=== PATIENT | male | born 1955 | race Caucasian/White ===

== ENCOUNTER 2019-05-26 21:37 | Inpatient (IN) ==
[2019-05-26 23:34] LABS: ABG Base Excess -2.1 MMOL/L (-2.5-2.5); ABG HCO3 22.7 MMOL/L (20-26); ABG Oxygen Saturation 99.5 % (95-100); ABG PCO2 43.6 MM HG (35-48); ABG PH 7.346 (7.35-7.45); ABG TCO2 20.2 MMOL/L (23-27); Allen Test Positive; Pt O2 Delivery Device Ventilator
[2019-05-26] MEDS ORDERED: PROPOFOL 1,000 MG/100 ML BOTTLE IV ONE (23:36)
[2019-05-26] MEDS: PROPOFOL 1,000 MG/100 ML BOTTLE IV SCH (23:44)
[2019-05-27 00:51] LABS: Albumin 3.8 G/DL (3.4-5.0); Bilirubin,Total 0.6 MG/DL (0.2-1.0); Calcium 8.5 MG/DL (8.5-10.1); Osmolality,Calculated 274.5 MOS/KG (273-304); Total Protein 7.3 G/DL (6.4-8.3)
[2019-05-27] MEDS ORDERED: ONDANSETRON 4 MG/2 ML VIAL IV PRN (00:57)
[2019-05-27] MEDS ORDERED: ALBUTEROL 2.5 MG/3 ML NEB RESP TX PRN (00:57)
[2019-05-27] MEDS ORDERED: ACETAMINOPHEN 325 MG TABLET PO PRN (00:57)
[2019-05-27 01:09] LABS: Basophils % 0.5 % (0.0-0.8); Hematocrit 43.2 VOL% (42.0-52.0); Immature Granulocytes % 0.3 %; Immature Granulocytes Absolute 0.01 #; Lymphocytes # 1.5 10*3/uL (1.4-4.0); Lymphocytes % 36.6 % (21.2-54.2); Mean Corpuscular HGB Conc 34.7 GM/DL (32-36); Mean Corpuscular Volume 92.5 FL (87-102); Mean Platelet Volume 9.2 FL (9.6-12.0); Monocytes % 5.5 % (1.7-12.7); Neutrophils % 57.1 % (38.7-73.9); Platelet Count 94 T/CUMM (130-400); Red Blood Count 4.67 MC/CUMM (3.8-5.5); Red Cell Distribution Width 12.1 % (9.3-17.3)
[2019-05-27] MEDS: SODIUM CHLORIDE 0.9% 1,000 ML IV SCH ×2 (01:43→09:43)
[2019-05-27 02:17] LABS: PT Patient Result 11.3 SECS
[2019-05-27 07:29] LABS: Apearance,Urine CLEAR (Clear); Bilirubin,Urine Negative (Negative); Blood, Urine Moderate mg/dL (Negative); Glucose,Urine (UA) Negative (Negative); Ketones,Urine Negative (Negative); Mucus,Urine Occasional /LPF (Occasional); Nitrite,Urine Negative (Negative); Protein,Urine Negative; RBC,Urine 1 /HPF (0-4); Urine Color Yellow (Yellow); Urine Specific Gravity 1.004 (1.001-1.035); Urine Urobilinogen < 2.0 EU/DL (0.2-1.0); WBC,Urine 1 /HPF (0-6)
[2019-05-27 07:40] LABS: Allen Test Positive; Pt O2 Delivery Device Ventilator
[2019-05-27 07:44] LABS: ABG Base Excess -1.1 MMOL/L (-2.5-2.5); ABG HCO3 23.5 MMOL/L (20-26); ABG Oxygen Saturation 99.6 % (95-100); ABG PCO2 35.9 MM HG (35-48); ABG PH 7.412 (7.35-7.45); ABG TCO2 19.3 MMOL/L (23-27)
[2019-05-27] MEDS ORDERED: LORazepam 2 MG/1 ML VIAL IV PRN (08:53)
[2019-05-27] MEDS: PROPOFOL 1,000 MG/100 ML BOTTLE IV SCH (09:23)
[2019-05-27] MEDS: PANTOPRAZOLE 40 MG VIAL IV SCH (09:25)
[2019-05-27] MEDS: THIAMINE 200 MG/2 ML VIAL IV SCH (11:48)
[2019-05-27] MEDS: NICOTINE 21 MG/24 HR PATCH TRANSDERM SCH (12:45)
[2019-05-27] MEDS: FOLIC ACID INJ 1 MG in SYRINGE 1 EACH IV SCH (12:46)
[2019-05-27] MEDS: ALBUTEROL/IPRATROPIUM 3 ML NEB RESP TX SCH ×2 (13:36→19:57)
[2019-05-27] MEDS: SULFAMETHOX/TRIMETHOPRIM 800-160 MG TABLET PO SCH ×2 (20:32→20:35)
[2019-05-27] MEDS: CLOPIDOGREL 75 MG TABLET PO SCH (20:32)
[2019-05-27] MEDS: ROSUVASTATIN 20 MG TABLET PO SCH (20:32)
[2019-05-27] MEDS: GABAPENTIN 600 MG TABLET PO SCH ×2 (20:32→21:07)
[2019-05-28] MEDS: ALBUTEROL/IPRATROPIUM 3 ML NEB RESP TX SCH ×2 (01:10→08:26)
[2019-05-28 05:28] LABS: Basophils % 0.4 % (0.0-0.8); Eosinophils % 0.2 % (0.00-10.9); Hematocrit 38.3 VOL% (42.0-52.0); Hemoglobin 13.2 GM/DL (14.0-18.0); Immature Granulocytes % 0.2 %; Immature Granulocytes Absolute 0.01 #; Lymphocytes # 1.6 10*3/uL (1.4-4.0); Lymphocytes % 33.1 % (21.2-54.2); Mean Corpuscular HGB Conc 34.5 GM/DL (32-36); Mean Corpuscular Volume 94.8 FL (87-102); Mean Platelet Volume 10.2 FL (9.6-12.0); Monocytes % 7.6 % (1.7-12.7); Neutrophils % 58.5 % (38.7-73.9); Platelet Count 72 T/CUMM (130-400); Red Blood Count 4.04 MC/CUMM (3.8-5.5); Red Cell Distribution Width 12.1 % (9.3-17.3); White Blood Count 4.9 T/CUMM (4-12)
[2019-05-28 05:58] LABS: Calcium 8.5 MG/DL (8.5-10.1); Osmolality,Calculated 282.1 MOS/KG (273-304)
[2019-05-28 08:20] VITALS: BP 121/67
[2019-05-28] MEDS ORDERED: POTASSIUM CHLORIDE 20 MEQ TABLET PO ONE (09:46)
[2019-05-28] MEDS: CLOPIDOGREL 75 MG TABLET PO SCH (10:16)
[2019-05-28] MEDS: GABAPENTIN 600 MG TABLET PO SCH (10:16)
[2019-05-28] MEDS: NICOTINE 21 MG/24 HR PATCH TRANSDERM SCH (10:17)
[2019-05-28] MEDS: THIAMINE 200 MG/2 ML VIAL IV SCH (10:17)
[2019-05-28] MEDS: ROSUVASTATIN 20 MG TABLET PO SCH (10:17)
[2019-05-28] MEDS: SULFAMETHOX/TRIMETHOPRIM 800-160 MG TABLET PO SCH (10:28)
[2019-05-28] MEDS: PANTOPRAZOLE 40 MG VIAL IV SCH (10:28)
[2019-05-28 10:34] LABS: Troponin I < 0.015 NG/ML (0.00-0.045)
[2019-05-28] MEDS: FOLIC ACID INJ 1 MG in SYRINGE 1 EACH IV SCH (10:36)
== END 2019-05-28 12:11 | disposition home or self-care (01) | DRG 208 ==
LOC: N.ICU 22:25 → SUATTDRO 23:07 → N.2E 05-27 18:26
PROVIDERS: ADMIT Internal Medicine; ATTEND Family Medicine

== ENCOUNTER 2020-03-01 12:23 | Observation (INO) ==
[2020-03-01] MEDS ORDERED: ASPIRIN 325 MG TABLET PO STA (12:56)
[2020-03-01 13:18] LABS: Basophils % 0.2 % (0.0-0.8); Eosinophils % 0.5 % (0.00-10.9); Hematocrit 48.1 VOL% (42.0-52.0); Hemoglobin 17.1 GM/DL (14.0-18.0); Immature Granulocytes % 0.3 %; Immature Granulocytes Absolute 0.02 #; Lymphocytes # 1.9 10*3/uL (1.4-4.0); Lymphocytes % 29.4 % (21.2-54.2); Mean Corpuscular HGB Conc 35.6 GM/DL (32-36); Mean Corpuscular Volume 92.9 FL (87-102); Mean Platelet Volume 9.3 FL (9.6-12.0); Monocytes % 6.5 % (1.7-12.7); Neutrophils % 63.1 % (38.7-73.9); Platelet Count 101 T/CUMM (130-400); Red Blood Count 5.18 MC/CUMM (3.8-5.5); Red Cell Distribution Width 12.8 % (9.3-17.3); White Blood Count 6.6 T/CUMM (4-12)
[2020-03-01] MEDS: NITROGLYCERIN SL 0.4 MG TABLET SL PRN ×3 (13:18→13:50)
[2020-03-01 13:38] LABS: Calcium 9.1 MG/DL (8.5-10.1); Osmolality,Calculated 267.1 MOS/KG (273-304)
[2020-03-01 13:42] LABS: Troponin I < 0.015 NG/ML (0.00-0.045)
[2020-03-01 14:42] LABS: Barbiturates Screen,Urine Negative (Negative); Benzodiazepines Screen,Urine Negative (Negative); Cannabinoid Screen,Urine Negative (Negative); Opiate Screen,Urine Negative (Negative); Phencyclidine Screen,Urine Negative (Negative)
[2020-03-01] MEDS ORDERED: ONDANSETRON 4 MG/2 ML VIAL IV PRN (14:57)
[2020-03-01] MEDS ORDERED: MORPHINE 4 MG/1 ML VIAL IV PRN (14:57)
[2020-03-01] MEDS ORDERED: ACETAMINOPHEN 325 MG TABLET PO PRN (14:57)
[2020-03-01] MEDS: ENOXAPARIN 80 MG/0.8 ML SYRINGE SUBCUT SCH (16:23)
[2020-03-01] MEDS: SODIUM CHLORIDE 0.45% 1,000 ML IV SCH (16:24)
[2020-03-01] MEDS ORDERED: ALUMINUM/MAGNES/SIMETH MAX STR 30 ML UDCUP PO PRN (16:48)
[2020-03-01] MEDS ORDERED: MAGNESIUM SULF RIDER 4 GM in PREMIX 1 EACH IV PRN (16:48)
[2020-03-01] MEDS ORDERED: hydrALAZINE 20 MG/1 ML VIAL IV PRN (16:48)
[2020-03-01] MEDS ORDERED: ALBUTEROL 2.5 MG/3 ML NEB RESP TX PRN (16:48)
[2020-03-01] MEDS ORDERED: CALCIUM CARBONATE CHEW 500 MG TABLET PO PRN (16:48)
[2020-03-01] MEDS ORDERED: ZALEPLON 5 MG CAPSULE PO PRN (16:48)
[2020-03-01] MEDS ORDERED: BISACODYL 5 MG TABLET PO PRN (16:48)
[2020-03-01] MEDS ORDERED: NICOTINE 21 MG/24 HR PATCH TRANSDERM PRN (16:48)
[2020-03-01] MEDS ORDERED: guaiFENesin/DM ER 600-30 MG TABLET PO PRN (16:48)
[2020-03-01] MEDS ORDERED: SIMETHICONE CHEW 125 MG TABLET PO PRN (16:48)
[2020-03-01] MEDS ORDERED: MAGNESIUM SULF RIDER 2 GM in PREMIX 1 EACH IV PRN (16:48)
[2020-03-01] MEDS ORDERED: PROMETHAZINE 25 MG TABLET PO PRN (16:48)
[2020-03-01 17:27] LABS: Troponin I < 0.015 NG/ML (0.00-0.045)
[2020-03-01] MEDS: GABAPENTIN 600 MG TABLET PO SCH ×2 (17:45→20:47)
[2020-03-01 19:30] LABS: Troponin I < 0.015 NG/ML (0.00-0.045)
[2020-03-01] MEDS: DOCUSATE SODIUM 100 MG CAPSULE PO SCH (20:47)
[2020-03-01] MEDS: RANOLAZINE 500 MG TABLET PO SCH (20:47)
[2020-03-01] MEDS ORDERED: ROSUVASTATIN 20 MG TABLET PO SCH (21:00)
[2020-03-01 22:50] LABS: Troponin I < 0.015 NG/ML (0.00-0.045)
[2020-03-02 01:17] LABS: Basophils % 0.4 % (0.0-0.8); Eosinophils # 0.1 10*3/uL (0.0-0.87); Hematocrit 44.2 VOL% (42.0-52.0); Hemoglobin 15.1 GM/DL (14.0-18.0); Immature Granulocytes % 0.6 %; Immature Granulocytes Absolute 0.03 #; Lymphocytes # 1.8 10*3/uL (1.4-4.0); Lymphocytes % 35.6 % (21.2-54.2); Mean Corpuscular HGB Conc 34.2 GM/DL (32-36); Mean Corpuscular Volume 94.6 FL (87-102); Mean Platelet Volume 9.6 FL (9.6-12.0); Monocytes % 6.3 % (1.7-12.7); Neutrophils % 56.1 % (38.7-73.9); Platelet Count 92 T/CUMM (130-400); Red Blood Count 4.67 MC/CUMM (3.8-5.5); Red Cell Distribution Width 12.8 % (9.3-17.3); White Blood Count 4.9 T/CUMM (4-12)
[2020-03-02 01:27] LABS: Calcium 8.3 MG/DL (8.5-10.1)
[2020-03-02 01:30] LABS: Risk Ratio 4.55; VLDL CHOLESTEROL 65.8 MG/DL
[2020-03-02 01:31] LABS: Troponin I < 0.015 NG/ML (0.00-0.045)
[2020-03-02] MEDS: ENOXAPARIN 80 MG/0.8 ML SYRINGE SUBCUT SCH (03:23)
[2020-03-02] MEDS: SODIUM CHLORIDE 0.45% 1,000 ML IV SCH (04:31)
[2020-03-02 05:19] LABS: Eosinophils 1 % (0-10); Lymphocytes 35 % (20-55); Segmented Neutrophils 60 % (50-85); Total Cells Counted 100
[2020-03-02 05:20] LABS: Platelet Estimate Decreased
[2020-03-02] MEDS ORDERED: CLOPIDOGREL 75 MG TABLET PO SCH (09:00)
[2020-03-02] MEDS ORDERED: lisinopriL 10 MG TABLET PO SCH (09:00)
[2020-03-02] MEDS ORDERED: PANTOPRAZOLE 40 MG TABLET PO SCH (09:00)
[2020-03-02] MEDS ORDERED: ASPIRIN EC 81 MG TABLET PO SCH (09:00)
[2020-03-02] MEDS ORDERED: METOPROLOL SUCCINATE XL 25 MG TABLET PO SCH (09:00)
[2020-03-02] MEDS ORDERED: MONTELUKAST 10 MG TABLET PO SCH (09:00)
[2020-03-02] MEDS: RANOLAZINE 500 MG TABLET PO SCH (09:06)
[2020-03-02] MEDS: DOCUSATE SODIUM 100 MG CAPSULE PO SCH (09:06)
[2020-03-02] MEDS: GABAPENTIN 600 MG TABLET PO SCH (09:06)
[2020-03-02 12:21] VITALS: BP 111/67
== END 2020-03-02 15:48 | disposition home or self-care (01) ==
LOC: N.ED 12:23 → N.EDINP 12:23 → N.TELEN 16:44
PROVIDERS: ADMIT Internal Medicine Interventional Cardiology; ATTEND Internal Medicine Interventional Cardiology